=== PATIENT | male | born 1950 | race Asian ===

== ENCOUNTER 2017-12-24 08:14 | Day surgery (SDC) | payer MEDICARE, OTHER ==
[~2017-12-24 08:14] MED LIST: CEFAZOLIN 1 GM INJ; CEFAZOLIN 2 GM/50 ML (PMX) 50 ML IVPB; SOD CHLORIDE 0.9% 1,000 ML IV
[2017-12-24 10:07] LABS: ADD MAN DIFF? NO
[2017-12-24 10:24] LABS: WHITE BLOOD COUNT 3.5 10^3/ul (4.8-10.8)
[2017-12-24 10:24] LABS: BASOPHILS % 0.6 % (0.0-2.0); EOSINOPHILS # 0.1 10^3/ul (0.0-0.5); EOSINOPHILS % 1.7 % (0.0-7.0); HEMATOCRIT 42.1 % (42.0-52.0); HEMOGLOBIN 14.3 g/dl (14.0-18.0); LYMPHOCYTES # 1.1 10^3/ul (0.8-2.9); LYMPHOCYTES % 32.6 % (15.0-51.0); MEAN CORPUSCULAR HEMOGLOBIN 34.3 pg (29.0-33.0); MEAN PLATELET VOLUME 9.8 fl (7.4-10.4); MONOCYTE # 0.3 10^3/ul (0.3-0.9); MONOCYTES % 7.2 % (0.0-11.0); NEUTROPHILS % 57.6 % (39.0-77.0); PLATELET COUNT 184 10^3/UL (140-415); RED BLOOD COUNT 4.17 10^6/ul (4.70-6.10)
[2017-12-24 10:36] LABS: HOLD TRANSMISSIONS 1
[2017-12-24 10:44] LABS: INR 0.77; PROTIME 10.8 Sec (11.9-14.9); PT RATIO 0.8
[2017-12-24 10:45] LABS: PARTIAL THROMBOPLASTIN TIME 31.5 Sec (25.0-35.0)
[2017-12-24 11:02] LABS: ALANINE AMINOTRANSFERASE 21 IU/L (13-69); ALBUMIN 4.7 g/dl (3.3-4.9); ALBUMIN/GLOBULIN RATIO 1.27; ALKALINE PHOSPHATASE 76 IU/L (42-121); ANION GAP 17 (8-16); ASPARTATE AMINO TRANSFERASE 25 IU/L (15-46); BILIRUBIN,INDIRECT 0.5 mg/dl (0-1.1); BILIRUBIN,TOTAL 0.5 mg/dl (0.2-1.3); CARBON DIOXIDE 30 mmol/L (21-31); CHLORIDE 105 mmol/L (97-110); GLUCOSE 110 mg/dl (70-220); TOTAL PROTEIN 8.4 g/dl (6.1-8.1)
[2017-12-24 11:04] LABS: BLOOD UREA NITROGEN 15 mg/dl (7-20); POTASSIUM 4.4 mmol/L (3.5-5.1)
[2017-12-24 11:06] LABS: CALCIUM 9.3 mg/dl (8.4-10.2); CREATININE 0.72 mg/dl (0.61-1.24); SODIUM 148 mmol/L (135-144)
[2017-12-24] MEDS ORDERED: PROPOFOL 20 ML ×2 (11:31)
[2017-12-24] MEDS ORDERED: ROCURONIUM 50 MG INJ ×2 (11:33)
[2017-12-24] MEDS ORDERED: DEXAMETHASONE 4 MG/ML 1 ML INJ ×2 (11:54)
[2017-12-24] MEDS ORDERED: ONDANSETRON 4 MG INJ ×2 (11:55)
[2017-12-24] MEDS: BUPIVACAINE 0.5% (SDV) 30 ML INJ ×2 (12:16)
[2017-12-24] MEDS ORDERED: SUGAMMADEX SODIUM 200 MG/2 ML VIAL IV ×2 (12:18)
== END 2017-12-24 14:25 | disposition home or self-care (01) ==
LOC: SDS 08:14
DX: K64.4 Residual hemorrhoidal skin tags (principal); K64.8 Other hemorrhoids
CPT/HCPCS: 46260; 71045; 80053; 85025; 85610; 85730; 88304; 93005